=== PATIENT | female | born 1975 | race Caucasian/White ===

== ENCOUNTER → 2024-01-02 12:54 | Outpatient (REF) | payer OTHER, SELFPAY | LOC: HWRAD 12:54 | PROVIDERS: ATTENDING PHYSICIAN Physician Assistant Medical | DX: M25.531 Pain in right wrist (principal) | CPT/HCPCS: 73110; 73130 ==

== ENCOUNTER → 2024-02-13 12:26 | Outpatient (REF) | payer OTHER, SELFPAY | LOC: HWWDC 12:26 | PROVIDERS: ATTENDING PHYSICIAN Obstetrics & Gynecology; FAMILY PHYSICIAN Family Medicine | DX: Z12.31 Encounter for screening mammogram for malignant neoplasm of breast (principal) | CPT/HCPCS: 77063; 77067 ==